=== PATIENT | female | born 1955 | race Caucasian/White ===

== ENCOUNTER → 2017-01-27 | Outpatient (CLI) | payer OTHER ==
--- NOTE | 2017-01-27 20:17 | RAD ---
EXAM: Chest,2 Views CLINICAL INDICATION: 61-year-old female with acute upper respiratory infection. TECHNIQUE: Two-view, PA and lateral projections of the chest were obtained. COMPARISON: None. FINDINGS: Unremarkable cardiac and mediastinal silhouette. Heart size is normal. Patchy opacification of the RIGHT lower lobe raises the concern for consolidation/infectious process. No Pneumothorax or pleural effusions. The visualized bones are within normal limits. IMPRESSION: Patchy opacification of the RIGHT lower lobe raises the concern for consolidation/infectious process. Please correlate with patient clinical findings and follow-up for resolution. Electronically signed by: Richelle Lazar MD 01/27/2017 8:16 PM CDT
== END | disposition home or self-care (01) ==
LOC: RAD 19:06
PROVIDERS: ATTEND Nurse Practitioner Family
DX: J06.9 Acute upper respiratory infection, unspecified (principal)

== ENCOUNTER → 2017-03-12 | Outpatient (CLI) | payer OTHER ==
--- NOTE | 2017-03-12 08:09 | RAD ---
Procedure: XR HAND 3 OR MORE VIEWS Exam Date: 03/12/2017 12:00 AM CDT Ordering Provider: CHRIS MCCARTHY Clinical Indication: HAND PAIN Comparison: None Findings: The bones are osteopenic. Multifocal moderate joint space narrowing and spurring involves the interphalangeal joints. Mild triscaphe and thumb CMC joint space narrowing and spurring. No acute fracture or focal osseous destruction is present. The soft tissues are unremarkable. IMPRESSION: No acute osseous abnormality. 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 Electronically signed by: Raquel More MD 03/12/2017 8:08 AM CDT
== END ==
LOC: RAD 07:41
PROVIDERS: ATTEND Orthopaedic Surgery
DX: M79.642 Pain in left hand (principal); M19.032 Primary osteoarthritis, left wrist; M19.042 Primary osteoarthritis, left hand; Z01.818 Encounter for other preprocedural examination

== ENCOUNTER 2017-03-17 05:53 | Day surgery (SDC) | payer OTHER ==
--- NOTE | 2017-03-13 09:20 | HP ---
CHIEF COMPLAINT: Left hand numbness. HISTORY OF PRESENT ILLNESS: Marli is a 61-year-old female with a history of numbness in the hand. It is worse on the ulnar aspect of the hand, but she says she gets numbness in the first three digits as well, both with activities and at night. She is awoken quite frequently at night. She has feelings of weakness in the hand with solid fiber paster operator. She denies any radiation of symptoms proximal to the elbow and denies any trauma related to the onset of this. She has had contralateral carpal tunnel release by us previously. PAST SURGICAL HISTORY: 1. . 2. Cholecystectomy. 3. Hysterectomy. 4. Partial thyroidectomy. 5. Gastric bypass. 6. Carpal tunnel release. MEDICATIONS: 1. Multiple vitamins. 2. Hydroxychloroquine. 3. Synthroid. 4. Nexium. 5. Lisinopril. 6. Atenolol. 7. Levocetirizine. 8. Montelukast. 9. Estradiol. 10. Symbicort. 11. Albuterol. ALLERGIES: CORGARD, CEFDINIR. CODE STATUS: Full code. IMMUNIZATIONS: Up to date. SOCIAL HISTORY: The patient does not drink, smoke or use any illicit drugs. FAMILY HISTORY: None pertinent to today's complaint. REVIEW OF SYSTEMS: Negative except as indicated in the History of Present Illness. PHYSICAL EXAMINATION: VITAL SIGNS: Blood pressure 164/96. Pulse 31. Weight 200. Height 5'5". MENTAL STATUS: The patient is awake, alert, and is able to give a good history and participate in the physical. The patient is oriented to person, place and time. SKIN: Normal tone and turgor. MUSCULOSKELETAL: She has positive Tinel's at both the elbow and the carpal tunnel. She has positive carpal tunnel compression test. She has some weakness in abduction of the digits and she has minor thenar as well as hypothenar atrophy. She does maintain solid fiber paster operator strength near the contralateral side. She has warm and well perfused extremity. There is no deformity. There is no crepitus with range of motion. She maintains full range of motion of the shoulder, elbow, wrist and digits. She has palpable ulnar as well as radial pulses. She has positive Phalen's at the wrist as well. Two point discrimination shows subjective discrepancy between the left and the right side in the fourth and fifth digits as well as the ulnar aspect of the forearm. ASSESSMENT: 1. Cubital tunnel syndrome. 2. Carpal tunnel syndrome. PLAN: She has had this going on for quite a while and it is causing symptoms on a daily basis. She is unable to use steroids or anti-inflammatories. She has been using a brace on the wrist, which is not helping the carpal tunnel component of her issue. As such, she has elected to undergo surgical intervention for both issues. We are going to get her set up for both carpal tunnel release as well as ulnar nerve transposition. We have discussed the risks, benefits, and alternatives to that and the patient has given informed consent. #[id number] [facility]
[~2017-03-17 05:53] MED LIST: LACTATED RINGERS 1,000 ML ONE; SODIUM CHL 0.9% 50ML MIN-BAG+ 50 ML IVPB ONE; ceFAZolin SODIUM 1 GM VIAL ONE
[2017-03-17] MEDS ORDERED: fentaNYL CITRATE INJ 50 MCG/ML AMP ONE (06:40)
[2017-03-17] MEDS ORDERED: MIDAZOLAM INJ 5 MG/5 ML VIAL ONE (06:40)
[2017-03-17] MEDS ORDERED: BUPIVACAINE 0.25% W/EPI 50 ML VIAL INJ ONE (06:45)
[2017-03-17] MEDS ORDERED: LIDOCAINE 1% 50 ML VIAL INJ ONE (06:46)
[2017-03-17] MEDS ORDERED: BUPIVACAINE 0.25% INJ 30 ML VIAL INJ ONE (06:46)
[2017-03-17] MEDS ORDERED: VANCOMYCIN HCL INJ 1,000 MG VIAL IVPB ONE ×2 (06:46→07:04)
[2017-03-17] MEDS ORDERED: ceFAZolin SODIUM 1 GM VIAL ONE (06:46)
[2017-03-17] MEDS ORDERED: LIDOCAINE 1% W/ EPINEPHRINE 20 ML VIAL INJ ONE (06:46)
[2017-03-17] MEDS ORDERED: SODIUM CHLORIDE 0.9% 250ML 250 ML ONE (07:04)
[2017-03-17] MEDS ORDERED: ELECTROLYTE-A 1,000 ML IVS ONE (09:38)
[2017-03-17] MEDS ORDERED: ONDANSETRON INJ 4 MG/2 ML VIAL ONE (10:46)
[2017-03-17] MEDS ORDERED: PROPOFOL 200 MG/20 ML VIAL IV ONE (12:00)
[2017-03-17] MEDS ORDERED: ePHEDrine SULF 50 MG/ML IV ONE (12:00)
[2017-03-17] MEDS ORDERED: LIDOCAINE 1% 10 ML VIAL INJ ONE (12:00)
[2017-03-17] MEDS ORDERED: raNITIdine HCL INJ 25 MG/ML VIAL IV ONE (12:00)
[2017-03-17] MEDS ORDERED: DEXAMETHASONE INJ 10 MG/ML VIAL IV ONE (12:00)
[2017-03-17] MEDS ORDERED: METOCLOPRAMIDE HCL INJ 10 MG/2 ML VIAL IV ONE (12:00)
[2017-03-17] MEDS ORDERED: GLYCOPYRROLATE 0.2 MG/ML VIAL IV ONE (12:00)
[2017-03-17 13:33] VITALS: BP 126/77; TEMP 97.6; O2SAT 99
--- NOTE | 2017-03-18 08:22 | OP ---
DATE OF PROCEDURE: 03/17/17 PREOPERATIVE DIAGNOSIS: 1. Cubital tunnel syndrome. 2. Carpal tunnel syndrome. POSTOPERATIVE DIAGNOSIS: 1. Cubital tunnel syndrome. 2. Carpal tunnel syndrome. PROCEDURE: 1. Carpal tunnel release. 2. Ulnar nerve transposition. SURGEON: Pj Herrera MD. TERRAZZO WORKER APPRENTICE: Jerzy Aguilera CST, SA-C. ANESTHESIA: General. COMPLICATIONS: None. FINDINGS: 1. Severe narrowing of the ulnar nerve with subluxation over the medial epicondyle. 2. Thickening of the transverse carpal ligament. INDICATION: Ms. Salas has a history of numbness in the hand. She had physical examination and clinical findings consistent with the aforementioned diagnoses. Because of her failure of conservative measures, she requested operative intervention. After discussing the risks, benefits and alternatives to that, she gave informed consent for that. PROCEDURE: The patient was brought to the Operating Room and placed in the supine position. General anesthesia was induced and the patient's arm was sterilely prepped and draped. Attention was first focused on the carpal tunnel. A incision was made directly overlying the transverse carpal ligament and blunt dissection was carried down to the ligament. The transverse carpal ligament was sharply transected. Following that, a [place] elevator was passed both proximally and distally. Once release had been confirmed, the wound was thoroughly irrigated and the wound was closed with Nylon suture. The wound was provisionally wrapped and attention was then focused on the ulnar nerve. The medial epicondyle and olecranon were identified and then incision was made approximately midway between the two structures. Blunt dissection was carried down and the ulnar nerve was identified proximally. It was freed from surrounding tissue and a vessel loop was passed around the nerve. Using the vessel loop and careful manipulation, the nerve was freed from proximal to distal across the cubital tunnel. Once the nerve had been fully mobilized, the tissues medially were undermined. The wound was very thoroughly irrigated and the tissues along the medial aspect were approximated to the medial epicondyle. Great care was taken to ensure that the nerve as free of any compression subsequent to the transposition. Following that, the wound was closed with combination of running and interrupted subcuticular stitches. Sterile dressings were placed. The patient was awoken from anesthesia and taken to Recovery. POSTOPERATIVE INSTRUCTIONS: The patient has been encouraged to do range of motion of the digits. She will followup with us in approximately two days. #[id number] [facility]
== END 2017-03-17 12:00 | disposition home health service (06) ==
LOC: AMB 05:53
PROVIDERS: ATTEND Orthopaedic Surgery
DX: G56.02 Carpal tunnel syndrome, left upper limb (principal); G56.22 Lesion of ulnar nerve, left upper limb; J45.909 Unspecified asthma, uncomplicated; I10 Essential (primary) hypertension; E66.9 Obesity, unspecified; Z98.84 Bariatric surgery status; Z88.8 Allergy status to other drugs, medicaments and biological substances; Z79.899 Other long term (current) drug therapy
CPT/HCPCS: 01810; 36415; 64718; 64721; 80048; 81001; 85025; 93005; J0690; J1100; J2250; J2405; J2765; J2780; J3010; J3370; J3490; J7050; J7120

== ENCOUNTER → 2017-06-04 | Outpatient (CLI) | payer OTHER ==
--- NOTE | 2017-06-05 09:49 | MAM ---
EXAM DESCRIPTION: Screening Mammogram,Bilateral CLINICAL HISTORY: 62 yearsFemaleSCREENING. "Fibrocystic lump on the left side of my left breast." Mother with breast cancer. Hysterectomy 1993. HRT five or more years ago. COMPARISON: 2-D digital screening bilateral study 05/12/2016 and 05/02/2015. Reports from prior examinations also reviewed. TECHNIQUE: Bilateral CC and MLO projection full-field images, 2-D digital screening mammographic technique. CAD was utilized. FINDINGS: The breast parenchymal density pattern is: Scattered areas of fibroglandular density. No skin thickening or nipple retraction left axillary lymph node. Bilateral solitary microcalcifications. No focal, stellate mass or density, focal asymmetry , and no suspicious microcalcifications bilaterally. Table mammograms since April 2015. IMPRESSION: BI-RADS CATEGORY: 2 - BENIGN FINDINGS. FOLLOW UP: Routine digital bilateral screening, one year interval from May 2017. Written communication explaining the findings and follow-up, will be mailed to the patient and referring health care provider. According to the [employer], yearly mammograms are recommended starting at age 40 and continuing as long as a woman is in good health. Any breast change noted on a breast self-exam should be reported promptly to the patient's healthcare provider. Breast MRI is recommended for women with an approximately 20-25% or greater lifetime risk of breast cancer, including women with a strong family history of breast or ovarian cancer and women who have been treated for Hodgkin's disease. A negative mammographic report should not delay tissue diagnosis in patients with significant clinical history or physical findings. Extremely dense breast tissue limits the sensitivity of digital mammography. Electronically signed by: Jerzy Diamond MD 06/05/2017 9:48 AM CDT Workstation: [email or web address]
== END | disposition home or self-care (01) ==
LOC: MAMMO 16:27
PROVIDERS: ATTEND Family Medicine
DX: Z12.31 Encounter for screening mammogram for malignant neoplasm of breast (principal)

== ENCOUNTER → 2017-10-13 | Outpatient (CLI) | payer OTHER | END | disposition home or self-care (01) | LOC: GMAJ 10:40 | PROVIDERS: ATTEND Family Medicine | DX: E03.9 Hypothyroidism, unspecified (principal) ==

== ENCOUNTER 2017-12-06 10:21 | Emergency (ER) | payer OTHER ==
--- NOTE | 2017-12-06 10:36 | ED.PDOC ---
History of Present Illness - General Stated Complaint: COUGH DIFFICULTY BREATHING SPUTUM IS BLOOD TINGED Time Seen by Provider: 12/06/17 10:27 Source: patient Exam Limitations: no limitations Additional Information: 62 YEAR OLD WITH KNOWN HISTORY OF ASTHMA PRESENTS WITH PRODUCTIVE COUGH DIFFICULTY BREATHING LAST 5 DAYS THIS MORNING SHE HAD NOTICED BLOOD TINGED SPUTUM SHE IS A NON SMOKER AND IS NOT ON ANY ANTICOAGULANTS - History of Present Illness Timing/Duration: this morning Severity: moderate Possible Cause: no prior episodes Improving Factors: nothing Worsening Factors: nothing Associated Symptoms: cough, fever/chills Allergies/Adverse Reactions: Allergies Nadolol [From Corgard] Allergy (Verified 09/30/15 02:47) Cefdinir Adverse Reaction (Verified 03/12/17 13:37) Prednisolone Adverse Reaction (Verified 03/12/17 13:37) Prednisone Adverse Reaction (Verified 03/12/17 13:37) Other Home Medications: Ambulatory Orders Atenolol [Tenormin] 100 mg PO DAILY 09/30/15 Biotin 1,000 mcg PO BID 09/30/15 Calcium 500 mg PO BID 09/30/15 Cholecalciferol [Vitamin D-3] 2,000 iu PO BID 09/30/15 Esomeprazole Magnesium [Nexium] 40 mg PO DAILY 09/30/15 Estradiol 2 mg PO BEDTIME 09/30/15 Etanercept [Enbrel] 50 mg IM WKLY 09/30/15 Folic Acid 800 mcg PO BID 09/30/15 Hydroxychloroquine [Plaquenil] 200 mg PO BID 09/30/15 Levothyroxine Sodium [Synthroid] 150 mcg PO DAILY 09/30/15 Lisinopril [Prinivil] 5 mg PO DAILY 09/30/15 Multiple Vitamin [Multi Vitamin Daily] 1 tab PO BID 09/30/15 Vitamin E 400 unit PO BID 09/30/15 Albuterol Sulfate Nebs [Proventil Nebs] 2.5 mg NEB PRN PRN #100 vial 10/03/15 Montelukast [Singulair] 10 mg PO DAILY #30 tab 10/03/15 Azithromycin Tab [Zithromax Tab] 250 mg PO QDPC #1 tab 12/06/17 Fluticasone Furoate-Vilanterol [Breo Ellipta] 1 inh IN DAILY 12/06/17 Lrjpfulxyyp-Wioyarfwcpj-Aauotn [Move Free Joint Health Ad] 1 tab PO BID Levocetirizine Dihydrochloride [Levocetirizine Dihydrochl] 5 mg PO DAILY Review of Systems - Review of Systems Constitutional: States: see HPI EENTM: States: no symptoms reported Respiratory: States: see HPI, cough, short of breath Cardiology: States: no symptoms reported Gastrointestinal/Abdominal: States: no symptoms reported Genitourinary: States: no symptoms reported Musculoskeletal: States: no symptoms reported Skin: States: no symptoms reported Neurological: States: no symptoms reported Endocrine: States: no symptoms reported Hematologic/Lymphatic: States: no symptoms reported Past Medical History (General) - Patient Medical History Hx Seizures: No Hx Stroke: No Hx Asthma: Yes Hx of COPD: No Hx Cardiac Disorders: No Hx Congestive Heart Failure: No Hx Pacemaker: No Hx Hypertension: No Hx Diabetes: No Hx Gastroesophageal Reflux: Yes Hx MRSA: No - Vaccination History Hx Tetanus, Diphtheria Vaccination: Yes - Social History Hx Alcohol Use: No Hx Substance Use: No Hx Physical Abuse: No Hx Emotional Abuse: No - Female History Patient : No Family Medical History - Family History Mother Family History: No Known Living Status: Maternal Grandparents Living Status: Hx Family Hypertension: Yes Hx Family Diabetes: Yes Brother Living Status: Still Living Hx Family Hypertension: Yes Hx Family Diabetes: Yes Physical Exam - Physical Exam General Appearance: Alert, Comfortable Eye Exam: bilateral normal ENT Exam: normal ENT inspection, hearing grossly normal, TMs normal, pharynx normal, nasal congestion Neck: non-tender, full range of motion, supple Respiratory: chest non-tender, lungs clear, normal breath sounds, no respiratory distress Cardiovascular/Chest: normal peripheral pulses, regular rate, rhythm, no edema, no gallop, no JVD, no murmur Gastrointestinal/Abdominal: normal bowel sounds, non tender, soft, no organomegaly, no pulsatile mass Extremity: normal range of motion, non-tender, normal inspection, no pedal edema , no calf tenderness Neurologic: paint stripper II-XII nml as tested, no motor/sensory deficits, alert, oriented x 3 Departure - Departure Clinical Impression: Cough with hemoptysis, Acute bronchitis Time of Disposition: 11:26 Disposition: Discharge to Home or Self Care Condition: Good Diet: resume usual diet Referrals: Misael Dejesus MD [Primary Care Provider] - 1-2 Weeks Prescriptions: Azithromycin Tab [Zithromax Tab] 250 mg PO QDPC #1 tab Home Medications: Ambulatory Orders Atenolol [Tenormin] 100 mg PO DAILY 09/30/15 Biotin 1,000 mcg PO BID 09/30/15 Calcium 500 mg PO BID 09/30/15 Cholecalciferol [Vitamin D-3] 2,000 iu PO BID 09/30/15 Esomeprazole Magnesium [Nexium] 40 mg PO DAILY 09/30/15 Estradiol 2 mg PO BEDTIME 09/30/15 Etanercept [Enbrel] 50 mg IM WKLY 09/30/15 Folic Acid 800 mcg PO BID 09/30/15 Hydroxychloroquine [Plaquenil] 200 mg PO BID 09/30/15 Levothyroxine Sodium [Synthroid] 150 mcg PO DAILY 09/30/15 Lisinopril [Prinivil] 5 mg PO DAILY 09/30/15 Multiple Vitamin [Multi Vitamin Daily] 1 tab PO BID 09/30/15 Vitamin E 400 unit PO BID 09/30/15 Albuterol Sulfate Nebs [Proventil Nebs] 2.5 mg NEB PRN PRN #100 vial 10/03/15 Montelukast [Singulair] 10 mg PO DAILY #30 tab 10/03/15 Azithromycin Tab [Zithromax Tab] 250 mg PO QDPC #1 tab 12/06/17 Fluticasone Furoate-Vilanterol [Breo Ellipta] 1 inh IN DAILY 12/06/17 Csotdquxrnw-Yxtaxhkyovh-Ojqnjk [Move Free Joint Health Ad] 1 tab PO BID Levocetirizine Dihydrochloride [Levocetirizine Dihydrochl] 5 mg PO DAILY
[2017-12-06 10:46] VITALS: TEMP 98.8
--- NOTE | 2017-12-06 11:03 | RAD ---
PROCEDURE: XR CHEST 1 VIEW HISTORY: R/O PNEUMONIA COMPARISON: 01/27/2017 TECHNIQUE: Single projection of the chest was done. FINDINGS: Mild chronic parenchymal scarring is again noted in the right lower lung zone. There is minimal left basilar infiltrate/atelectasis . There are no pneumothoraces or pleural effusions. The pulmonary vascularity is normal. The cardiomediastinal silhouette is unremarkable for patient's age and sex. IMPRESSION: Mild chronic parenchymal scarring is again noted in the right lower lung zone, unchanged since 01/27/2017. There is minimal left basilar infiltrate/atelectasis . Electronically signed by: Aj Grimes MD 12/06/2017 11:02 AM WASTE MACHINE OFFBEARER Workstation: [id number]
[2017-12-06 11:39] VITALS: BP 92/44; O2SAT 94
== END 2017-12-06 11:40 | disposition home or self-care (01) ==
LOC: ER 10:21
DX: J20.9 Acute bronchitis, unspecified (principal); R04.2 Hemoptysis

== ENCOUNTER → 2018-07-26 | Outpatient (CLI) | payer OTHER ==
--- NOTE | 2018-07-27 20:20 | MAM ---
EXAM DESCRIPTION: 3D Screening BILATERAL : Digital Mammography. CLINICAL HISTORY: 63 years Female SCREEN . No complaints. No personal history of breast cancer. Mother with breast cancer. Childbirth. Hysterectomy 24 years ago. Taking hormones 5 or more years ago.. Lifetime risk of developing breast cancer (Tyrer-Cuzick model)(%): Not calculated COMPARISON: 2-D digital screening bilateral study 06/04/2017.. TECHNIQUE: Bilateral CC and MLO projection full-field images, Digital tomosynthesis mammographic technique. Bilateral digital 2-D full-field MLO images. CAD not utilized. FINDINGS: The breast parenchymal density pattern is: Scattered areas of fibroglandular density. No skin thickening or nipple retraction. Bilateral axillary lymph nodes. Bilateral solitary microcalcifications. No new focal, stellate mass or density, focal asymmetry , and no suspicious microcalcifications bilaterally. Stable mammograms compared to prior study. Taking into account, differences in mammographic technique. IMPRESSION: Benign exam. BIRAD CATEGORY: 2 BENIGN FINDINGS. RECOMMENDATIONS: FOLLOW UP: Routine digital bilateral screening, one year interval from July 2018. Written communication explaining the IMPRESSION and follow-up, will be mailed to the patient and referring health care provider. According to the [employer], yearly mammograms are recommended starting at age 40 and continuing as long as a woman is in good health. Any breast change noted on a breast self-exam should be reported promptly to the patient's healthcare provider. Breast MRI is recommended for women with an approximately 20-25% or greater lifetime risk of breast cancer, including women with a strong family history of breast or ovarian cancer and women who have been treated for Hodgkin's disease. A negative mammographic report should not delay tissue diagnosis in patients with significant clinical history or physical findings. Extremely dense breast tissue limits the sensitivity of digital mammography. Electronically signed by: Jerzy Diamond MD 07/27/2018 8:18 PM CDT
== END ==
LOC: MAMMO 14:30
PROVIDERS: ATTEND Family Medicine
DX: Z12.31 Encounter for screening mammogram for malignant neoplasm of breast (principal)

== ENCOUNTER → 2019-08-08 | Outpatient (CLI) | payer OTHER ==
--- NOTE | 2019-08-10 19:53 | MAM ---
EXAM DESCRIPTION: 3D Screening BILATERAL : Digital Mammography. CLINICAL HISTORY: 64 years Female SCREENING . No complaints. No personal history of breast cancer. Mother with breast cancer in the seventh decade. Menarche age 13. Childbirth. Hysterectomy approximately 27 years. Currently on HRT. Lifetime risk of developing breast cancer (Tyrer-Cuzick model)(%): 14.0. COMPARISON: Bilateral screening digital breast tomosynthesis 26 July 2018. 04 June 2017 bilateral 2-D digital screening.. TECHNIQUE: Bilateral CC and MLO projection full-field images, digital tomosynthesis mammographic technique. Bilateral digital 2-D full-field MLO images. and CC images. CAD not available for tomosynthesis or 2-D images. FINDINGS: The breast parenchymal density pattern is: Scattered areas of fibroglandular density. No skin thickening or nipple retraction. Bilateral solitary microcalcifications. Bilateral accessory breast tissue in the axilla. No new focal, stellate mass or density, focal asymmetry , and no suspicious microcalcifications bilaterally. Stable mammograms compared to prior study. IMPRESSION: Benign exam. BIRAD CATEGORY: 2 BENIGN FINDINGS. RECOMMENDATIONS: FOLLOW UP: Routine digital bilateral mammographic screening, one year interval from July 2019. Written communication explaining the IMPRESSION and follow-up, will be mailed to the patient and referring health care provider. According to the [employer], yearly mammograms are recommended starting at age 40 and continuing as long as a woman is in good health. Any breast change noted on a breast self-exam should be reported promptly to the patient's healthcare provider. Breast MRI is recommended for women with an approximately 20-25% or greater lifetime risk of breast cancer, including women with a strong family history of breast or ovarian cancer and women who have been treated for Hodgkin's disease. A negative mammographic report should not delay tissue diagnosis in patients with significant clinical history or physical findings. Extremely dense breast tissue limits the sensitivity of digital mammography. Electronically signed by: Jerzy Diamond MD 08/10/2019 7:51 PM CDT
== END ==
LOC: MAMMO 16:00
PROVIDERS: ATTEND Family Medicine
DX: Z12.31 Encounter for screening mammogram for malignant neoplasm of breast (principal)

== ENCOUNTER → 2019-11-21 | Outpatient (CLI) | payer OTHER ==
--- NOTE | 2019-11-22 13:19 | MRI ---
Study: MRI of the Left Shoulder. Indication: INCOMPLETE ROTATOR CUFF TEAR OR RUPTURE OF LEFT SHOULDER Technique: Multiplanar, multi sequence MRI of the left shoulder was obtained without intravenous contrast. Comparison: None. Findings: Mild to moderate AC joint osteoarthritis. Type I acromion with moderate downsloping. Small-volume subacromial/subdeltoid bursal fluid. Supraspinatus and infraspinatus tendinosis with subtle low-grade interstitial fissuring and bursal surface fraying throughout the supraspinatus tendon insertion. No full-thickness tear. Subscapularis tendinosis with low-grade interstitial tearing superiorly. Teres minor tendon intact. Mild atrophy and grade 1 fatty infiltration rotator cuff musculature. Long head biceps tendon intact. Circumferential labral truncation/degeneration. Minimal glenohumeral joint osteoarthritis. No acute fracture. Impression: Supraspinatus and infraspinatus tendinosis with low-grade interstitial fissuring and bursal surface fraying of the supraspinatus tendon. Subscapularis tendinosis with interstitial tearing superiorly. Mild atrophy and grade 1 fatty infiltration rotator cuff musculature. Circumferential labral truncation and degeneration. Minimal glenohumeral joint osteoarthritis. Mild to moderate AC joint osteoarthritis. Small-volume subacromial/subdeltoid bursal fluid. Electronically signed by: Dandy Ferraro MD 11/22/2019 1:17 PM [facility]
== END ==
LOC: MRI 13:53
PROVIDERS: ATTEND Family Medicine
DX: M75.112 Incomplete rotator cuff tear or rupture of left shoulder, not specified as traumatic (principal); M75.92 Shoulder lesion, unspecified, left shoulder; M19.012 Primary osteoarthritis, left shoulder; M75.52 Bursitis of left shoulder; M62.512 Muscle wasting and atrophy, not elsewhere classified, left shoulder

== ENCOUNTER → 2020-03-02 | Outpatient (CLI) | payer OTHER | LOC: LAB.O 08:44 | PROVIDERS: ATTEND Orthopaedic Surgery | DX: Z01.818 Encounter for other preprocedural examination (principal) ==

== ENCOUNTER 2020-03-21 05:32 | Day surgery (SDC) | payer OTHER ==
[2020-03-21] MEDS ORDERED: SODIUM CHL 0.9% 100ML MINI-BAG 100 ML IVPB ONE (06:11)
[2020-03-21] MEDS ORDERED: ceFAZolin SODIUM 1 GM VIAL ONE (06:11)
[2020-03-21] MEDS ORDERED: LACTATED RINGERS 1,000 ML ONE (06:11)
[2020-03-21] MEDS ORDERED: LIDOCAINE 1% 10 ML VIAL INJ ONE (07:00)
[2020-03-21] MEDS ORDERED: MAGNESIUM SULFATE INJ 1 GM/2 ML VIAL ONE (07:00)
[2020-03-21] MEDS ORDERED: PROPOFOL 200 MG/20 ML VIAL IV ONE (07:00)
[2020-03-21] MEDS ORDERED: ePHEDrine SULF 50 MG/ML ONE (07:00)
[2020-03-21] MEDS ORDERED: DEXAMETHASONE INJ 10 MG/ML VIAL ONE (07:00)
[2020-03-21] MEDS ORDERED: LEVALBUTEROL NEBS 1.25 MG/3 ML VIAL NEB ONE (09:00)
[2020-03-21] MEDS ORDERED: KETAMINE HCL 100 MG/ML VIAL ONE (10:52)
[2020-03-21] MEDS ORDERED: SUGAMMADEX SODIUM 200 MG/2 ML VIAL IV ONE (10:52)
[2020-03-21] MEDS ORDERED: MIDAZOLAM INJ 5 MG/5 ML VIAL ONE (10:53)
[2020-03-21] MEDS ORDERED: ROCURONIUM BROMIDE 10 MG/ML VIAL ONE (10:53)
[2020-03-21] MEDS ORDERED: fentaNYL CITRATE INJ 50 MCG/ML 2 ML AMP ONE (10:53)
[2020-03-21] MEDS ORDERED: FAMOTIDINE INJ 10 MG/ML VIAL IV ONE (10:54)
[2020-03-21] MEDS: BUPIVACAINE 0.5% 30 ML VIAL INJ ONE ×2 (11:55→12:10)
[2020-03-21] MEDS: ceFAZolin SODIUM 1 GM VIAL ONE ×2 (11:56→12:12)
[2020-03-21] MEDS: BUPIVACAINE LIPOSOME 13.3 MG/ML VIAL INJ ONE ×2 (11:56→12:10)
[2020-03-21] MEDS: VANCOMYCIN HCL INJ 1,000 MG VIAL IVPB ONE ×2 (11:57→12:12)
[2020-03-21] MEDS ORDERED: LACTATED RINGERS 1,000 ML IVS ONE (12:29)
[2020-03-21] MEDS ORDERED: ONDANSETRON INJ 4 MG/2 ML VIAL ONE (13:09)
[2020-03-21] MEDS ORDERED: ONDANSETRON INJ 4 MG/2 ML VIAL IV ONE (13:10)
[2020-03-21 14:36] VITALS: BP 134/66; TEMP 97.9; O2SAT 96
--- NOTE | 2020-03-23 08:49 | OP ---
DATE OF PROCEDURE: 03/21/20 PREOPERATIVE DIAGNOSIS: 1. Impingement. 2. Distal clavicle arthritis. POSTOPERATIVE DIAGNOSIS: 1. Impingement. 2. Distal clavicle arthritis. PROCEDURE: 1. Distal clavicle excision. SURGEON: Pj Herrera MD. VOCATIONAL TECHNICAL EDUCATION DIRECTOR: Jerzy Aguilera CST, SA-C. ANESTHESIA: General anesthesia. COMPLICATIONS: None. FINDINGS: Severe arthritis at the acromioclavicular joint with osteophyte formation. INDICATION: Marli has a history of severe pain at the acromioclavicular joint. She has had diagnostic and therapeutic injections, however, those only gave her short-term relief. Due to her ongoing discomfort, she has requested operative intervention. After discussing the risks, benefits and alternatives to operative therapy, the patient gave informed consent. PROCEDURE: The patient was brought to the Operating Room and placed in the supine position. General anesthesia was induced and the patient was transitioned into the beach chair position. The arm and shoulder were then sterilely prepped and draped. An incision was made right at the level of the acromion and dissection was carried down to the acromioclavicular joint. It was identified and the distal 5 to 7 mm were excised. Following excision, care was taken to ensure complete removal of any bony debris. After that, the entire wound was very thoroughly irrigated and the periosteum was reapproximated over the defect. The skin was closed with a combination of running and interrupted subcuticular stitches. Sterile dressing was placed. The patient was placed in a sling, awoken from anesthesia and taken to Recovery. POSTOPERATIVE PLAN: The patient has been encouraged to do range of motion of the digits and she will followup with us in two days. #[id number] [facility]
== END 2020-03-21 14:33 | disposition home or self-care (01) ==
LOC: AMB 05:32
PROVIDERS: ATTEND Orthopaedic Surgery
DX: M19.012 Primary osteoarthritis, left shoulder (principal); M25.712 Osteophyte, left shoulder; M75.42 Impingement syndrome of left shoulder; I10 Essential (primary) hypertension; K21.9 Gastro-esophageal reflux disease without esophagitis; E66.9 Obesity, unspecified; J45.909 Unspecified asthma, uncomplicated; M06.9 Rheumatoid arthritis, unspecified; Z85.850 Personal history of malignant neoplasm of thyroid; Z79.899 Other long term (current) drug therapy; Z88.8 Allergy status to other drugs, medicaments and biological substances; Z88.1 Allergy status to other antibiotic agents; Z79.1 Long term (current) use of non-steroidal anti-inflammatories (NSAID)
CPT/HCPCS: 00450; 23120; 80307; 94640; J0690; J1100; J2250; J2405; J3370; J3475; J3490; J7050; J7120; J7614

== ENCOUNTER → 2020-05-01 | Outpatient (CLI) | payer OTHER | LOC: LAB.O 09:30 | PROVIDERS: ATTEND Internal Medicine | DX: M06.9 Rheumatoid arthritis, unspecified (principal); Z79.899 Other long term (current) drug therapy ==

== ENCOUNTER → 2020-07-12 | Outpatient (CLI) | payer BC ==
--- NOTE | 2020-07-16 16:45 | US ---
EXAM DESCRIPTION: Soft Tissue,Extremity CLINICAL HISTORY: LOCALIZED SWELLING, MASS AND LUMP RIGHT AXILLA COMPARISON: None. TECHNIQUE: Real-time sonographic images of the right axilla are obtained for evaluation of soft tissues. FINDINGS: Sonographic images show a 3.3 x 1.9 x 1.9 cm more discrete isoechoic mass in the right axilla and near palpable abnormality. Small 9 x 4 x 5 mm lymph node in the right axilla seen. IMPRESSION: Sonographic images of the soft tissue in the right axilla suggest lipoma measuring 3.3 x 1.9 cm. Electronically signed by: Chris Woo MD 07/16/2020 4:43 PM CDT
== END ==
LOC: US 10:22
PROVIDERS: ATTEND Family Medicine
DX: R22.31 Localized swelling, mass and lump, right upper limb (principal)

== ENCOUNTER → 2020-07-30 | Outpatient (CLI) | payer BC ==
--- NOTE | 2020-07-31 16:16 | MAM ---
EXAM DESCRIPTION: 3D Diagnostic, Bilateral: Digital Mammography CLINICAL HISTORY: 65 yearsFemaleBREAST LUMP RIGHT right axilla. Patient states has been there approximately 30 years. Mother with breast cancer in a 60s. Menarche age 13. Childbirth age 23. Menopause age unknown. Currently on HRT. Lifetime risk of developing breast cancer (Tyrer-Cuzick model) percentage is 13 6. COMPARISON: Bilateral screening digital breast tomosynthesis July 2019 and July 2018.. Ultrasound July 12: left axilla showing probable 3.3 cm lipoma. TECHNIQUE: Bilateral LM, CC, and MLO projection full-field images, digital mammographic tomosynthesis technique. Bilateral 2-D digital full-field MLO images. LM, CC, and MLO projection CAD not available. FINDINGS: The breast parenchymal density pattern is: Scattered areas of fibroglandular density. No skin thickening or nipple retraction skin marker in the region of the palpable lump right axilla. Appearance of accessory breast tissue, stable since the prior study. Solitary microcalcifications and groups of benign type microcalcifications. Stable intramammary lymph node posterior midline inferior right breast near the chest wall. Stable focal asymmetry middle third left breast. No new focal, stellate mass or density, focal asymmetry , and no suspicious microcalcifications bilateral breasts. Stable mammograms compared to prior study, taking into account differences in mammographic technique IMPRESSION: Benign exam. BIRAD CATEGORY: 2 BENIGN FINDINGS. RECOMMENDATIONS: FOLLOW UP: Return to routine digital bilateral mammographic screening, one year interval from July 2020. Written communication explaining the IMPRESSION and follow-up, will be mailed to the patient and referring health care provider. The FINDINGS and the FOLLOW-UP plan were reviewed in person with the patient after the examination. According to the [employer], yearly mammograms are recommended starting at age 40 and continuing as long as a woman is in good health. Any breast change noted on a breast self-exam should be reported promptly to the patient's healthcare provider. Breast MRI is recommended for women with an approximately 20-25% or greater lifetime risk of breast cancer, including women with a strong family history of breast or ovarian cancer and women who have been treated for Hodgkin's disease. A negative mammographic report should not delay tissue diagnosis in patients with significant clinical history or physical findings. Extremely dense breast tissue limits the sensitivity of digital mammography. Electronically signed by: Jerzy Diamond MD 07/31/2020 4:14 PM CDT
== END ==
LOC: MAMMO 08:53
PROVIDERS: ATTEND Family Medicine
DX: R92.8 Other abnormal and inconclusive findings on diagnostic imaging of breast (principal)
CPT/HCPCS: 77066; G0279

== ENCOUNTER 2020-09-06 13:03 | Emergency (ER) | payer BC, OTHER ==
--- NOTE | 2020-09-06 13:15 | ED.PDOC ---
History of Present Illness - General Time Seen by Provider: 09/06/20 13:11 Source: patient, RN notes reviewed, Vital Signs reviewed Additional Information: 65-year-old female, with history of arthritis presents to the ER because of left wrist pain, patient had a mechanical fall, she was helping her moving a door when she fell landing on her left wrist, denies hitting her head, patient arrived POV walking with a steady gait does not be in any distress - History of Present Illness Occurred: just prior to arrival Pain - Upper Extremity: mild: Wrist, left Method of Injury: fell Improving Factors: nothing Worsening Factors: nothing Allergies/Adverse Reactions: Allergies Nadolol [From Corgard] Allergy (Verified 09/06/20 13:21) Cefdinir Adverse Reaction (Verified 09/06/20 13:21) Prednisolone Adverse Reaction (Verified 09/06/20 13:21) Prednisone Adverse Reaction (Verified 09/06/20 13:21) Other Home Medications: Ambulatory Orders Atenolol [Tenormin] 100 mg PO BEDTIME 09/30/15 Biotin 1,000 mcg PO BID 09/30/15 Cholecalciferol [Vitamin D-3] 2,000 iu PO BID 09/30/15 Estradiol 2 mg PO BEDTIME 09/30/15 Folic Acid 800 mcg PO BID 09/30/15 Hydroxychloroquine [Plaquenil] 200 mg PO BID 09/30/15 Levothyroxine Sodium [Synthroid] 150 mcg PO DAILY 09/30/15 Lisinopril [Prinivil] 5 mg PO DAILY 09/30/15 Multiple Vitamin [Multi Vitamin Daily] 1 tab PO BID 09/30/15 Vitamin E 400 unit PO BID 09/30/15 Albuterol Sulfate Nebs [Proventil Nebs] 2.5 mg NEB PRN PRN #100 vial 10/03/15 Wkmxgkhummx-Uxndzzjekuv-Hiydsx [Move Free Joint Health Ad] 1 tab PO BID 12/06/17 Abatacept [Orencia Clickject] 125 mg IM WKLY 03/16/20 Magnesium [Magnesium 400 mg] 1 tab PO BID 03/16/20 Mometasone Furoate-Formoterol [Dulera 100-5 Mcg/Act] 1 inhaler IN DAILY 03/16/20 Omeprazole 40 mg PO DAILY 03/21/20 Review of Systems - Review of Systems Constitutional: States: no symptoms reported EENTM: States: no symptoms reported Respiratory: States: no symptoms reported Cardiology: States: no symptoms reported Gastrointestinal/Abdominal: States: no symptoms reported Genitourinary: States: no symptoms reported Musculoskeletal: States: no symptoms reported Skin: States: no symptoms reported Neurological: States: no symptoms reported Endocrine: States: no symptoms reported Hematologic/Lymphatic: States: no symptoms reported Past Medical History (General) - Patient Medical History Hx Seizures: No Hx Stroke: No Hx Asthma: Yes Hx of COPD: No Hx Cardiac Disorders: No Hx Congestive Heart Failure: No Hx Pacemaker: No Hx Hypertension: No Hx Thyroid Disease: Yes Hx Diabetes: No Hx Gastroesophageal Reflux: Yes Hx MRSA: No - Vaccination History Hx Tetanus, Diphtheria Vaccination: Yes Hx Influenza Vaccination: Yes Hx Pneumococcal Vaccination: Yes - Social History Hx Tobacco Use: No Hx Alcohol Use: No Hx Substance Use: No Hx Physical Abuse: No Hx Emotional Abuse: No - Female History Patient : No Family Medical History - Family History Mother Family History: No Known Living Status: Maternal Grandparents Living Status: Hx Family Hypertension: Yes Hx Family Diabetes: Yes Brother Living Status: Still Living Hx Family Hypertension: Yes Hx Family Diabetes: Yes Physical Exam - Physical Exam General Appearance: No apparent distress, Well Developed, Well Groomed, Well Hydrated, Well Nourished Eyes, Ears, Nose, Throat Exam: normal ENT inspection, TMs normal, pharynx normal Neck: non-tender, full range of motion, supple Cardiovascular/Respiratory: regular rate, rhythm, no M/R/G, normal peripheral pulses, no JVD, normal breath sounds, no respiratory distress Abdominal Exam: non-tender, no organomegaly Back Exam: normal inspection Shoulder Exam: normal inspection, non-tender, no evidence of injury, normal ROM Elbow/Forearm Exam: normal inspection, non-tender, no evidence of injury Wrist Exam: bone tenderness, deformity, swelling - normal neurivascular exam Hand Exam: normal inspection, non-tender, no evidence of injury, normal ROM Neuro/Tendon: normal sensation, normal motor functions, normal tendon functions, responds to pain Mental Status: alert, oriented x 3 Skin Exam: normal color Progress - Progress Progress: Patient presents to the ER with left wrist pain after fall, patient not denies hitting her head no LOC no evidence of head trauma seen on physical exam, patient did have a distal third comminuted intra-articular radial fracture, that was reduced using a closed reduction with conscious sedation, patient is awake alert does not be distress will be discharged home with a sling a volar splint, and referred to orthopedic surgery 2 keep the splint elevated to help with the swelling, and to return to the ER immediately with any tingling numbness excruciating pain on wirst and on fingers 09/06/20 13:49 Procedures - Splinting Left Wrist Hand-Made Type: orthoglass Splint: volar Pre-Proc Neuro Vasc Exam: normal Post-Proc Neuro Vasc Exam: normal - Joint Reduction left wrist Conscious Sedation: Yes - propofol 100 mg IV Reduction Attempts: 1 Pre-Procedure NV Exam: Yes Post Joint Reduction Film: joint reduced Progress: Intra-articular and comminuted displaced distal radial fracture, closed, internal vascular exam, reduction was achieved using countertraction and traction without any complications, wrist was immobilized with a volar splint, and and no complications during or after the procedure Departure - Departure Clinical Impression: Wrist fracture Qualifiers: Encounter type: initial encounter Fracture type: closed Laterality: left Qualified Code(s): S62.102A - Fracture of unspecified carpal bone, left wrist, initial encounter for closed fracture Disposition: Discharge to Home or Self Care Condition: Fair Instructions: Colles' Fracture (DC), Moderate Sedation in Adults, Moderate Sedation in Adults (DC) Diet: resume usual diet Referrals: Misael Dejesus MD [Primary Care Provider] - 1-2 Weeks Pj Herrera MD [Active Staff] - 1-2 Weeks Home Medications: Ambulatory Orders Atenolol [Tenormin] 100 mg PO BEDTIME 09/30/15 Biotin 1,000 mcg PO BID 09/30/15 Cholecalciferol [Vitamin D-3] 2,000 iu PO BID 09/30/15 Estradiol 2 mg PO BEDTIME 09/30/15 Folic Acid 800 mcg PO BID 09/30/15 Hydroxychloroquine [Plaquenil] 200 mg PO BID 09/30/15 Levothyroxine Sodium [Synthroid] 150 mcg PO DAILY 09/30/15 Lisinopril [Prinivil] 5 mg PO DAILY 09/30/15 Multiple Vitamin [Multi Vitamin Daily] 1 tab PO BID 09/30/15 Vitamin E 400 unit PO BID 09/30/15 Albuterol Sulfate Nebs [Proventil Nebs] 2.5 mg NEB PRN PRN #100 vial 10/03/15 Ptpjhhtwwdj-Cwborhhcbre-Cxhano [Move Free Joint Health Ad] 1 tab PO BID 12/06/17 Abatacept [Orencia Clickject] 125 mg IM WKLY 03/16/20 Magnesium [Magnesium 400 mg] 1 tab PO BID 03/16/20 Mometasone Furoate-Formoterol [Dulera 100-5 Mcg/Act] 1 inhaler IN DAILY 03/16/20 Omeprazole 40 mg PO DAILY 03/21/20
[2020-09-06] MEDS ORDERED: PROPOFOL 200 MG/20 ML VIAL IV ONE ×2 (13:24→13:25)
--- NOTE | 2020-09-06 13:36 | RAD ---
PROCEDURE: XR Left Wrist Complete, 3 or More Views CLINICAL INDICATION: The patient is 65 years old and is Female; fall MAIN TECHNIQUE: Frontal, lateral and oblique views of the left wrist. COMPARISON: No relevant prior studies available. FINDINGS: BONES/JOINTS: There are acute mildly displaced mildly comminuted intraarticular fractures of the distal radius and ulna with diffuse soft tissue swelling and significant dorsal angulation. The bony structures are diffusely demineralized indicating osteopenia. SOFT TISSUES: See above. IMPRESSION: Colles' fracture as described. Electronically signed by: Eros Cantu MD 09/06/2020 1:35 PM [facility]
--- NOTE | 2020-09-06 13:57 | RAD ---
: 1955. Technique: Two views of the left wrist. Clinical history: post reduction. Findings: Follow-up examination at 1:50 PM compared to previous same day at 1:22 PM Comminuted fracture of the distal radius. Improved near anatomic realignment of the fragments status post external reduction compared to the previous exam. Fracture of the distal ulna and fracture of the ulnar styloid. Essentially anatomic realignment of the fragments status post external reduction compared to the previous exam. Soft tissue swelling. Radiocarpal alignment is normal. Impression: 1. Improved radius and ulna fracture alignment after external reduction. Electronically signed by: Dale Quigley MD 09/06/2020 1:55 PM [facility]
[2020-09-06 14:07] VITALS: BP 142/56; TEMP 98.3; O2SAT 98
== END 2020-09-06 14:13 | disposition home or self-care (01) ==
LOC: ER 13:03
DX: S52.602A Unspecified fracture of lower end of left ulna, initial encounter for closed fracture (principal); S52.532A Colles' fracture of left radius, initial encounter for closed fracture; K21.9 Gastro-esophageal reflux disease without esophagitis; J45.909 Unspecified asthma, uncomplicated; E07.9 Disorder of thyroid, unspecified; W18.39XA Other fall on same level, initial encounter; Y93.89 Activity, other specified; Y92.9 Unspecified place or not applicable; Z79.899 Other long term (current) drug therapy; Z88.8 Allergy status to other drugs, medicaments and biological substances; Z88.1 Allergy status to other antibiotic agents
CPT/HCPCS: 73100; 73110; J3490

== ENCOUNTER → 2020-09-10 | Outpatient (CLI) | payer BC ==
--- NOTE | 2020-09-10 13:17 | RAD ---
EXAM DESCRIPTION: Wrist,Left 3 Views CLINICAL HISTORY: pain in left wrist COMPARISON: September 06, 2020 IMPRESSION: 3 views of the left wrist again demonstrate comminuted intra-articular fractures of the distal radius and ulna with mild impaction of the fracture fragments. Mildly displaced volar fracture fragments of the distal radius are similar to previous exam. No change in alignment. Ulnar styloid avulsion fracture is again seen. Osseous structures are diffusely osteopenic. No significant callus formation or periosteal reaction is seen at this time. Fiberglas cast is seen in place. Large soft tissue swelling over the dorsal aspect of the metacarpophalangeal joints and hand outside of the cast is seen and increased from previous. Electronically signed by: Chris Woo MD 09/10/2020 1:15 PM [facility]
== END ==
LOC: RAD 09:46
PROVIDERS: ATTEND Orthopaedic Surgery
DX: S52.572D Other intraarticular fracture of lower end of left radius, subsequent encounter for closed fracture with routine healing (principal); S52.032D Displaced fracture of olecranon process with intraarticular extension of left ulna, subsequent encounter for closed fracture with routine healing; S52.612D Displaced fracture of left ulna styloid process, subsequent encounter for closed fracture with routine healing; M79.9 Soft tissue disorder, unspecified

== ENCOUNTER → 2020-09-17 | Outpatient (CLI) | payer BC ==
--- NOTE | 2020-09-17 11:53 | RAD ---
EXAM DESCRIPTION: Wrist,Left 3 Views CLINICAL HISTORY: CLOSED FX OF DISTAL END OF RADIUS COMPARISON: 10 September 2020 TECHNIQUE: 3 views left FINDINGS: An impacted comminuted fracture of the distal radius is observed. The exam is obtained through casting material. Avulsion of the ulnar styloid process is observed. The fractures become slightly more impacted than seen previously. No significant callus formation is observed. IMPRESSION: An impacted fracture of the distal radius and avulsion of the ulnar styloid process is observed with increasing impaction of the fracture compared to the prior exam. No significant callus formation is yet evident. Electronically signed by: Miah Johnson MD 09/17/2020 11:51 AM [facility]
== END ==
LOC: RAD 08:06
PROVIDERS: ATTEND Orthopaedic Surgery
DX: S52.502D Unspecified fracture of the lower end of left radius, subsequent encounter for closed fracture with routine healing (principal); S52.612D Displaced fracture of left ulna styloid process, subsequent encounter for closed fracture with routine healing

== ENCOUNTER → 2020-10-02 | Outpatient (CLI) | payer BC ==
--- NOTE | 2020-10-02 11:09 | RAD ---
EXAM DESCRIPTION: Wrist,Left 3 Views CLINICAL HISTORY: 65 years Female, LEFT RADIUS FX COMPARISON: 09/17/2020 Findings: 3 view(s)/radiograph(s) Cast material obscures osseous detail. Similar alignment of the comminuted intra-articular distal left radius fracture. No solid osseous bridging identified. Similar alignment of the ulnar styloid fracture without significant healing. No new fracture is identified. No dislocation. Similar degenerative changes. IMPRESSION: Similar alignment of the comminuted intra-articular distal left radius fracture. Electronically signed by: See Miller MD 10/02/2020 11:07 AM [facility]
== END ==
LOC: RAD 07:55
PROVIDERS: ATTEND Orthopaedic Surgery
DX: S52.502D Unspecified fracture of the lower end of left radius, subsequent encounter for closed fracture with routine healing (principal)

== ENCOUNTER → 2020-10-15 | Outpatient (CLI) | payer BC ==
--- NOTE | 2020-10-15 11:15 | RAD ---
EXAM DESCRIPTION: Wrist,Left 3 Views CLINICAL HISTORY: 65 years, Female, CLOSED FX OF DISTAL END OF RADIUS COMPARISON: Previous x-ray left wrist October 02, 2020 and September 17, 2020 FINDINGS: Left wrist 3 x-ray views in a cast shows fracture distal radius with impaction. The distal ulnar styloid fracture is better seen on previous x-ray September 17, 2020. Bones appear osteopenic or osteoporotic. Periosteal new bone formation and callus formation are not well seen due to overlying cast material. No change in alignment since most recent study. IMPRESSION: Casted views of fractured distal left radius and ulna. No change in alignment. Electronically signed by: Asif Palacio MD 10/15/2020 11:14 AM [facility]
== END ==
LOC: RAD 08:52
PROVIDERS: ATTEND Orthopaedic Surgery
DX: S52.501D Unspecified fracture of the lower end of right radius, subsequent encounter for closed fracture with routine healing (principal); S52.602D Unspecified fracture of lower end of left ulna, subsequent encounter for closed fracture with routine healing

== ENCOUNTER → 2020-11-05 | Outpatient (CLI) | payer BC ==
--- NOTE | 2020-11-05 13:34 | RAD ---
3 radiographs left wrist Indication: CLOSED FXX OF DISTAL END OF RADIUS Comparison: October 15, 2020 Impression: Casting material has been removed. Impacted distal radial fracture redemonstrated with incomplete union end stable alignment. Minimally impacted distal ulnar metaphysis fracture noted with at least partial union. CT could better evaluate the degree of union as clinically indicated. Previous noted ulnar styloid fracture appears healed. No new acute fracture. Osteopenia. If this is a new finding, DEXA scan recommended as well as evaluation for possible osteoporosis treatment. Electronically signed by: Dandy Ferraro MD 11/05/2020 1:32 PM [facility]
== END ==
LOC: RAD 08:01
PROVIDERS: ATTEND Orthopaedic Surgery
DX: S52.502D Unspecified fracture of the lower end of left radius, subsequent encounter for closed fracture with routine healing (principal); S52.602D Unspecified fracture of lower end of left ulna, subsequent encounter for closed fracture with routine healing; M85.9 Disorder of bone density and structure, unspecified